=== PATIENT | female | born 1950 | race Caucasian/White ===

== ENCOUNTER → 2017-04-24 | Day surgery (SDC) | payer OTHER ==
[~2017-04-24] VITALS: Ht 162.6 cm; Wt 93.0 kg
[~2017-04-24] MED LIST: ASPIRIN EC81 M1 PO; LOSARTAN-HCTZ1 EAC2 PO; NAPROXEN500 M2 PO; OMEGA 3-6-9 11200 MG PO; PANTOPRAZOLE SO40 M1 PO; SERTRALINE HCL25 MG PO; SIMVASTATIN40 M1 PO
--- NOTE | 2017-04-24 07:33 | Operative Report ---
Operative/Inv Procedure Report Surgery Date: 04/24/17 Name of Procedure: Left carpal tunnel release Pre-Operative Diagnosis: Left carpal tunnel syndrome Post-Operative Diagnosis: Left carpal tunnel syndrome Estimated Blood Loss: scant Surgeon/Director Nursing Service: DAVID KUMARI MD Anesthesia: laryngeal mask airway Complications: None Condition: Stable to PACU Operative Indication: This is a 66-year-old female with long-standing left carpal tunnel syndrome. Risks and benefits of the procedure were discussed with the patient at length. Risks include but are not limited to nerve damage, muscle damage, infection, blood loss, blood clots, pulmonary embolus, and even . The patient agreed to the above risks and elected to proceed with surgery. Operative/Procedure Note Note: The patient was taken to the operating room and placed supine on the operating room table. A tourniquet was applied to the arm above the elbow. The upper extremity was prepped and draped in the normal sterile fashion. The patient received IV antibiotics prior to incision. A time out was performed and the site marking was also visualized prior to incision. An Esmarch was used to exsanguinate the extremity. The tourniquet was inflated. An incision was made extending from the distal wrist crease starting overlying the palmaris longest tendon in line with the fourth ray. This extended 2.5 cm. Care was taken not to cross Almodovar's cardinal line. Fat was also reflected at this time and the palmar fascia was incised. Next the transverse carpal ligament was incised. A [place] elevator was inserted deep to the ligament to protect the contents of the carpal tunnel. A knife was then used to release the ligament further distally. Next scissors were used to extend the release distally until the palmar fat was approached, taking care to protect the superficial palmar arch. The transverse carpal ligament was then incised proximally. The volar forearm fascia was released. Once the release was complete the wound was copiously irrigated. The incision was closed with 3-0 nylon suture in a simple interrupted fashion. 0.25% Marcaine was then injected to anesthetize the wound. A dry sterile dressing was applied and the patient was transferred to PACU in stable condition.
== END ==
LOC: STS 01:39
DX: G56.02 Carpal tunnel syndrome, left upper limb (principal); I10 Essential (primary) hypertension; K21.9 Gastro-esophageal reflux disease without esophagitis; J45.909 Unspecified asthma, uncomplicated; Z87.891 Personal history of nicotine dependence
CPT/HCPCS: J0690; J2250